=== PATIENT | female | born 2005 | race African-American/Black ===

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

== ENCOUNTER 2024-01-17 22:08 | Emergency (ER) | payer OTHER ==
--- NOTE | 2024-01-17 22:23 | ED ---
SOB HPI - General Source: patient, RN notes reviewed Mode of arrival: ambulatory Limitations: no limitations <Gabbie Madrigal - Last Filed: 01/17/24 22:22> <Raj Hwang - Last Filed: 01/18/24 02:17> - General Chief Complaint: Shortness of Breath Stated Complaint: SOB,37 WEEKS Time Seen by Provider: 01/17/24 22:22 - History of Present Illness Initial Comments: Patient is a 18-year-old female presented ER chief complaint shortness of breath. Denies any chest pain, cough, fevers, congestion. (Gabbie Madrigal) 18-year-old female who is currently 37 weeks presenting to the ED with a chief complaint of shortness of breath. Patient states she was in her bed when she started to feel an episode of shortness of breath and felt as if her heart was racing. Patient reports that this feels somewhat similar to history of panic attacks. No chest pain or shortness of breath. No fever or chills. No other complaints at this time. (Raj Hwang) - Related Data Previous Rx's Medication Instructions Recorded Escitalopram [Lexapro] 10 mg PO DAILY 30 Days #30 tab 04/08/23 Mirtazapine [Remeron] 15 mg PO HS 30 Days #30 tab 04/08/23 Nicotine 14Mg/24Hr Patch [Habitrol] 1 patch TRANSDERM DAILY 14 Days 04/08/23 #14 patch Cephalexin [Keflex] 500 mg PO Q6HR 7 Days #28 cap 01/18/24 Allergies Allergy/AdvReac Type Severity Reaction Status Date / Time No Known Allergies Allergy Verified 04/01/23 20:29 Review of Systems ROS Other: All systems not noted in ROS Statement are negative. <Gabbie Madrigal - Last Filed: 01/17/24 22:22> ROS Other: All systems not noted in ROS Statement are negative. <Raj Hwang - Last Filed: 01/18/24 02:17> ROS Statement: Those systems with pertinent positive or pertinent negative responses have been documented in the HPI. Past Medical History Past Medical History: No Reported History History of Any Multi-Drug Resistant Organisms: MRSA Date of last positivie culture/infection: 06/22/16 MDRO Source:: LEFT THIGH Past Surgical History: No Surgical Hx Reported Additional Past Surgical History / Comment(s): head surgery Past Anesthesia/Blood Transfusion Reactions: No Reported Reaction Past Psychological History: Anxiety, Depression Smoking Status: Vaper Past Alcohol Use History: Daily Past Drug Use History: Marijuana - Past Family History Mother Family Medical History: Hypertension <Gabbie Madrigal - Last Filed: 01/17/24 22:22> General Exam Limitations: no limitations <Gabbie Madrigal - Last Filed: 01/17/24 22:22> General appearance: alert, in no apparent distress Eye exam: Present: normal appearance Neck exam: Present: normal inspection Respiratory exam: Present: normal lung sounds bilaterally Cardiovascular Exam: Present: regular rate, normal rhythm GI/Abdominal exam: Present: soft (Gravid) Neurological exam: Present: alert, oriented X3 Skin exam: Present: warm, dry <Raj Hwang - Last Filed: 01/18/24 02:17> - General Exam Comments Initial Comments: Visual Physical Exam Vital signs reviewed General: Well-appearing, nontoxic, no acute distress. Head: Normocephalic, atraumatic Eyes: PERRLA, EOMI ENT: Airway patent Chest: Nonlabored breathing Skin: No visual rash, normal skin tone Neuro: Alert and oriented 3 Musculoskeletal: No gross abnormalities (Gabbie Madrigal) Course Vital Signs 01/17/24 22:11 Temperature 97.7 F Pulse Rate 80 Respiratory 18 Rate Blood Pressure 122/80 O2 Sat by Pulse 99 Oximetry Medical Decision Making - EKG Data -: EKG Interpreted by Me <Gabbie Madrigal - Last Filed: 01/17/24 22:22> - Lab Data Result diagrams: 01/17/24 22:54 01/17/24 23:33 <Raj Hwang - Last Filed: 01/18/24 02:17> - Medical Decision Making I performed the quick note portion of the exam. Electronically signed by Gabbie Madrigal PA-C (Gabbie Madrigal) Was pt. sent in by a medical professional or institution ([facility], [facility], urgent care, hospital, or care home...) When possible be specific @ -No Did you speak to anyone other than the patient for history (EMS, parent, family, police, friend...)? What history was obtained from this source @ -No Did you review nursing and triage notes (agree or disagree)? Why? @ -I reviewed and agree with nursing and triage notes Were old charts reviewed (outside hosp., previous admission, EMS record, old EKG, old radiological studies, urgent care reports/EKG's, care home records)? Report findings @ -No old charts were reviewed Differential Diagnosis (chest pain, altered mental status, abdominal pain women, abdominal pain men, vaginal bleeding, weakness, fever, dyspnea, syncope, headache, dizziness, GI bleed, back pain, seizure, CVA, palpatations, mental health, musculoskeletal)? @ -Differential Dyspnea: Coronary syndrome, arrhythmia, tamponade, asthma, COPD, pulmonary embolism, pneumonia, pneumothorax, pulmonary effusion, anaphylaxis, diabetic ketoacidosis, flailed chest, pulmonary contusion, diaphragmatic rupture, anemia, neuromuscular, this is not meant to be an all-inclusive list. EKG interpreted by me (3pts min.). @ -EKG interpreted by me showing a sinus rhythm at [address] or T wave changes. OR 114, QRS 90, QT/QTc 337/375 X-rays interpreted by me (1pt min.). @ -None done CT interpreted by me (1pt min.). @ -None done U/S interpreted by me (1pt. min.). @ -None done What testing was considered but not performed or refused? (CT, X-rays, U/S, labs)? Why? @ -None What meds were considered but not given or refused? Why? @ -None Did you discuss the management of the patient with other professionals (professionals i.e. , PA, G[facility] SPRAYER, lab, RT, psych nurse, social science manager, podiatry professor, teacher, chief digital officer, correctional casework specialist)? Give summary @ -No Was smoking cessation discussed for >3mins.? @ -No Was critical care preformed (if so, how long)? @ -No Were there social determinants of health that impacted care today? How? (Homele ssness, low income, unemployed, alcoholism, drug addiction, transportation, low edu. Level, literacy, decrease access to med. care, senior living, rehab)? @ -No Was there de-escalation of care discussed even if they declined (Discuss DNR or withdrawal of care, Hospice)? DNR status @ -No What co-morbidities impacted this encounter? (DM, HTN, Smoking, COPD, CAD, Cancer, CVA, ARF, Chemo, Hep., AIDS, mental health diagnosis, sleep apnea, morbid obesity)? @ - Was patient admitted / discharged? Hospital course, mention meds given and route, prescriptions, significant lab abnormalities, going to OR and other pertinent info. @ -Discharge 18-year-old female presenting to the ED with an episode of shortness of breath and palpitations. Laboratory studies reviewed. CBC unremarkable. Coagulation panel does show a D-dimer at 5.95. Chemistry panel largely unremarkable. UA largely unremarkable as well however does show white blood cells and 5 bacteria. Not highly suggestive of urinary tract infection patient is not having symptoms right now however in context of patient will be provided antibiotics. Serology panel negative. In regards to elevated D-dimer, patient does not want any additional workup including CT PE or venous duplex. Patient does report symptoms are similar to history of panic attacks. Patient discharged home in stable condition with strict return precautions. Undiagnosed new problem with uncertain prognosis? @ -No Drug Therapy requiring intensive monitoring for toxicity (Heparin, Nitro, Insulin, Cardizem)? @ -No Were any procedures done? @ -No Diagnosis/symptom? @ -Shortness of breath, palpitations, now resolved Acute, or Chronic, or Acute on Chronic? @ -Acute Uncomplicated (without systemic symptoms) or Complicated (systemic symptoms)? @ -Uncomplicated Side effects of treatment? @ -No Exacerbation, Progression, or Severe Exacerbation? @ -No Poses a threat to life or bodily function? How? (Chest pain, USA, SD, pneumonia, PE, COPD, DKA, ARF, appy, cholecystitis, CVA, Diverticulitis, Homicidal, Suicidal, threat to staff... and all critical care pts) @ -Unlikely (Raj Hwang) - Lab Data Lab Results 01/17/24 01/17/24 01/18/24 Range/Units 22:54 23:33 00:29 WBC 9.3 (4.0-11.0) k/uL RBC 3.77 L (3.80-5.40) m/uL Hgb 11.7 (11.4-16.0) gm/dL Hct 34.3 (34.0-46.0) % MCV 90.9 (80.0-100.0) fL MCH 31.0 (25.0-35.0) pg MCHC 34.2 (31.0-37.0) g/dL RDW 12.9 (11.5-15.5) % Plt Count 256 (150-450) k/uL MPV 7.5 PT (10.0-12.5) sec INR (<1.2) APTT (22.0-30.0) sec D-Dimer (<0.60) mg/L FEU Sodium 135 L (137-145) mmol/L Potassium 3.2 L (3.5-5.1) mmol/L Chloride 112 H (98-107) mmol/L Carbon Dioxide 19 L (22-30) mmol/L Anion Gap 4 mmol/L BUN 5 L (7-17) mg/dL Creatinine 0.33 L (0.52-1.04) mg/dL Est GFR (CKD-EPI)AfAm >90 (>60 ml/min/1.73 sqM) Est GFR (CKD-EPI)NonAf >90 (>60 ml/min/1.73 sqM) Glucose 96 (74-99) mg/dL Calcium 8.0 L (8.4-10.2) mg/dL Total Bilirubin 0.3 (0.2-1.3) mg/dL AST 26 (14-36) U/L ALT 15 (4-34) U/L Alkaline Phosphatase 165 H (38-126) U/L Troponin I (0.000-0.034) ng/mL Total Protein 5.0 L (6.3-8.2) g/dL Albumin 2.6 L (3.5-5.0) g/dL Urine Color Light Yellow Urine Appearance Clear (Clear) Urine pH 6.5 (5.0-8.0) Ur Specific Zachary 1.019 (1.001-1.035) Urine Protein Negative (Negative) Urine Glucose (UA) Negative (Negative) Urine Ketones Negative (Negative) Urine Blood Negative (Negative) Urine Nitrite Negative (Negative) Urine Bilirubin Negative (Negative) Urine Urobilinogen <2.0 (<2.0) mg/dL Ur Leukocyte Esterase Large H (Negative) Urine RBC 1 (0-5) /hpf Urine WBC 32 H (0-5) /hpf Ur Squamous Epith Cells 5 H (0-4) /hpf Urine Bacteria Rare H (None) /hpf Urine Mucus Occasional H (None) /hpf Influenza Type A (PCR) (Not Detectd) Influenza Type B (PCR) (Not Detectd) RSV (PCR) (Not Detectd) SARS-CoV-2 (PCR) (Not Detectd) 01/18/24 01/18/24 01/18/24 Range/Units 01:01 01:01 01:12 WBC (4.0-11.0) k/uL RBC (3.80-5.40) m/uL Hgb (11.4-16.0) gm/dL Hct (34.0-46.0) % MCV (80.0-100.0) fL MCH (25.0-35.0) pg MCHC (31.0-37.0) g/dL RDW (11.5-15.5) % Plt Count (150-450) k/uL MPV PT 9.6 L (10.0-12.5) sec INR 0.9 (<1.2) APTT 22.5 (22.0-30.0) sec D-Dimer 5.95 H (<0.60) mg/L FEU Sodium (137-145) mmol/L Potassium (3.5-5.1) mmol/L Chloride (98-107) mmol/L Carbon Dioxide (22-30) mmol/L Anion Gap mmol/L BUN (7-17) mg/dL Creatinine (0.52-1.04) mg/dL Est GFR (CKD-EPI)AfAm (>60 ml/min/1.73 sqM) Est GFR (CKD-EPI)NonAf (>60 ml/min/1.73 sqM) Glucose (74-99) mg/dL Calcium (8.4-10.2) mg/dL Total Bilirubin (0.2-1.3) mg/dL AST (14-36) U/L ALT (4-34) U/L Alkaline Phosphatase (38-126) U/L Troponin I <0.012 (0.000-0.034) ng/mL Total Protein (6.3-8.2) g/dL Albumin (3.5-5.0) g/dL Urine Color Urine Appearance (Clear) Urine pH (5.0-8.0) Ur Specific Zachary (1.001-1.035) Urine Protein (Negative) Urine Glucose (UA) (Negative) Urine Ketones (Negative) Urine Blood (Negative) Urine Nitrite (Negative) Urine Bilirubin (Negative) Urine Urobilinogen (<2.0) mg/dL Ur Leukocyte Esterase (Negative) Urine RBC (0-5) /hpf Urine WBC (0-5) /hpf Ur Squamous Epith Cells (0-4) /hpf Urine Bacteria (None) /hpf Urine Mucus (None) /hpf Influenza Type A (PCR) Not Detected (Not Detectd) Influenza Type B (PCR) Not Detected (Not Detectd) RSV (PCR) Not Detected (Not Detectd) SARS-CoV-2 (PCR) Not Detected (Not Detectd) - EKG Data EKG Comments: EKG taken at 22:19 shows sinus rhythm with sinus arrhythmia. No acute ST segment or T-wave abnormalities. Return here 81, OR interval 114, QRS duration 90, QT/QTC 337/375. (Gabbie Madrigal) Disposition <Gabbie Madrigal - Last Filed: 01/17/24 22:22> Is patient prescribed a controlled substance at d/c from ED?: No Time of Disposition: 01:50 <Raj Hwang - Last Filed: 01/18/24 02:17> Clinical Impression: Shortness of breath Disposition: HOME SELF-CARE Condition: Good Additional Instructions: Please return to the Emergency Department if symptoms worsen or any other concer ns. Please follow-up with your PCP. Prescriptions: Cephalexin [Keflex] 500 mg PO Q6HR 7 Days #28 cap Referrals: Dave Cervantes [Primary Care Provider] - 1-2 days
[2024-01-17] MEDS: SODIUM CHLORIDE 0.9% 1,000 ML IV STA (22:54)
[2024-01-17 23:09] LABS: HCT 34.3 % (34.0-46.0); HGB 11.7 gm/dL (11.4-16.0); MCHC 34.2 g/dL (31.0-37.0); MCV 90.9 fL (80.0-100.0); Mean Platelet Volume 7.5; Platelet Count 256 k/uL (150-450); RBC 3.77 m/uL (3.80-5.40); RDW 12.9 % (11.5-15.5); WBC 9.3 k/uL (4.0-11.0)
[2024-01-18 00:09] LABS: ALT 15 U/L (4-34); AST 26 U/L (14-36); African American GFR (CKD) >90 (>60 ml/min/1.73 sqM); Albumin 2.6 g/dL (3.5-5.0); Alkaline Phosphatase 165 U/L (38-126); Anion Gap 4 mmol/L; Blood Urea Nitrogen 5 mg/dL (7-17); Carbon Dioxide 19 mmol/L (22-30); Chloride 112 mmol/L (98-107); Glucose 96 mg/dL (74-99); Non-African American GFR(CKD) >90 (>60 ml/min/1.73 sqM); Potassium 3.2 mmol/L (3.5-5.1); Sodium 135 mmol/L (137-145); Total Bilirubin 0.3 mg/dL (0.2-1.3)
[2024-01-18 00:53] LABS: Appearance,Urine Clear (Clear); Bacteria,Urine Rare /hpf; Bilirubin,Urine Negative (Negative); Blood,Urine Negative (Negative); Color,Urine Light Yellow; Glucose,Urine (UA) Negative (Negative); Ketones,Urine Negative (Negative); Leukocyte Esterase,Urine Large (Negative); Mucus,Urine Occasional /hpf; Nitrite,Urine Negative (Negative); PH, Urine 6.5 (5.0-8.0); Protein,Urine Negative (Negative); RBC,Urine 1 /hpf (0-5); Specific Gravity,Urine 1.019 (1.001-1.035); Squamous Epithelial Cell,Urine 5 /hpf (0-4); Urobilinogen,Urine <2.0 mg/dL (<2.0); WBC,Urine 32 /hpf (0-5)
[2024-01-18 01:33] LABS: INR 0.9 (<1.2); Partial Thromboplastin Time 22.5 sec (22.0-30.0); Prothrombin Time 9.6 sec (10.0-12.5)
[2024-01-18 03:16] VITALS: BP 107/68; PULSE 82; RESP 16; TEMP 97.2
== END 2024-01-18 02:30 | disposition home or self-care (01) ==
LOC: EC 22:08
DX: O99.413 Diseases of the circulatory system complicating pregnancy, third trimester (principal); I49.8 Other specified cardiac arrhythmias; O99.333 Smoking (tobacco) complicating pregnancy, third trimester; F17.290 Nicotine dependence, other tobacco product, uncomplicated; O99.323 Drug use complicating pregnancy, third trimester; F12.90 Cannabis use, unspecified, uncomplicated; Z20.822 Contact with and (suspected) exposure to COVID-19; Z3A.37 37 weeks gestation of pregnancy
CPT/HCPCS: 36415; 80053; 81001; 84484; 85027; 85379; 85610; 85730; 87636; 93005; 96360; 99285

== ENCOUNTER 2024-01-18 02:33 | Outpatient (CLI) | payer OTHER ==
[2024-01-18 04:25] VITALS: BP 112/66; PULSE 71; RESP 16; TEMP 96.6
--- NOTE | 2024-01-18 11:32 | P.MSEPDOC ---
Presenting Problems - Arrival Data Date of Arrival on Unit: 01/18/24 Time of Arrival on Unit: 02:33 Mode of Transport: Wheelchair - Complaint OB-Reason for Admission/Chief Complaint: NST, Observation/Evaluation, Other Comment: pt. presents to triage from ER pt. was down in ER due to SOB that started around 9or 10pm, pt. states she was folding swaddles and then layed down and was having SOB with a heavy pressure on her chest, pt. 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 pt. was discharged from ER- pt. refusing CT scan as encouraged by ER. pt. denies SOB or chest pain at this time, pt. states that all resolved when she was down in ER. Medical History - Information : 1 Para: 0 Term: 0 : 0 Abortions: Spontaneous or Elective: 0 Number of Living Children: 0 - Gestational Age Gestational Age by AZRA (wks/days): 37 Weeks and 3 Days Review of Systems - Review of Systems Constitutional: No problems Breast: No problems ENT: No problems Cardiovascular: No problems Respiratory: No problems Gastrointestinal: No problems Genitourinary: No problems Musculoskeletal: No problems Neurological: No problems Skin: No problems Comment: lungs clear, no SOB, no chest pain Vital Signs - Temperature Temperature: 96.6 F Temperature Source: Temporal Artery Scan - Pulse Pulse Oximetery Pulse Rate: 71 Pulse Assessment Method: Automatic Cuff - Respirations Respiratory Rate: 16 Oxygen Delivery Method: Room Air O2 Sat by Pulse Oximetry: 100 - Blood Pressure Right Arm Blood Pressure: 112/66 Blood Pressure Mean: 81 Blood Pressure Source: Automatic Cuff Medical Screen Scoring - Assessment - Baby A Baseline FHR: 115 Heart Rate - NICHD Category: Category I (Normal) NST: Reactive Physician Notification - Physician Notified Physician Notified Date: 01/18/24 Physician Notified Time: 03:17 Physician: Tenisha Strickland Order Received: Yes - Notification Comment Comment: discharge pt. home, and have pt. follow up with Dr. Poole Maternal Triage Index - Maternal Triage Index Presenting for scheduled procedure w/no complaint: No - Stat/Priority 1 Stat Priority 1: No - Urgent/Priority 2 Urgent Priority 2: No - Prompt/Priority 3 Prompt Priority 3: No - Non-Urgent/Priority 4 Non-Urgent Priority 4: Yes Criteria Met for Priority 4: pt. is 37.3, reactive NST, denies pain or discomfort Disposition - Disposition OB Disposition: Discharge to home Discharge Date: 01/18/24 Discharge Time: 03:32 I agree with the RN Medical Screening Exam: Yes Physician's MSE Comment: Patient refused computed tomography scan in the ER to rule out pulmonary embolism. Apparently her symptoms have completely resolved. NST is reactive and she has no complaints. She is advised to follow up with her physician, Dr. Poole. She is advised to return to the ER preferably at the [facility] where her physician works out of if any symptoms return or any new symptoms arise. Case reviewed; plan agreed upon as documented in EMR&OBIX.: Yes Diagnosis: SHORTNESS OF BREATH
== END 2024-01-18 03:32 | disposition home or self-care (01) ==
LOC: FBPOP 02:33
PROVIDERS: ATTEND Obstetrics & Gynecology
DX: O99.513 Diseases of the respiratory system complicating pregnancy, third trimester (principal); R06.02 Shortness of breath; O99.323 Drug use complicating pregnancy, third trimester; F12.90 Cannabis use, unspecified, uncomplicated; Z3A.37 37 weeks gestation of pregnancy
CPT/HCPCS: 59025; G0463; 99213

== ENCOUNTER 2024-02-02 19:56 | Outpatient (CLI) | payer OTHER ==
[2024-02-02 21:35] VITALS: BP 115/70; PULSE 80; RESP 16; TEMP 96.8
--- NOTE | 2024-02-04 08:47 | P.MSEPDOC ---
Presenting Problems - Arrival Data Date of Arrival on Unit: 02/02/24 Time of Arrival on Unit: 19:56 Mode of Transport: Ambulatory - Complaint OB-Reason for Admission/Chief Complaint: Rule Out SROM Comment: pt. present to triage due to possible SROM, pt. states she started leaking clear fluid around noon today, shes not sure if it was just her mucous plug or if it was her water that has broke, pt. states shes been leaking througout the day since, amnisure negative Medical History - Information : 1 Para: 0 Term: 0 : 0 Abortions: Spontaneous or Elective: 0 Number of Living Children: 0 - Gestational Age Gestational Age by AZRA (wks/days): 39 Weeks and 4 Days Review of Systems - Review of Systems Constitutional: No problems Breast: No problems ENT: No problems Cardiovascular: No problems Respiratory: No problems Gastrointestinal: No problems Genitourinary: No problems Musculoskeletal: No problems Neurological: No problems Skin: No problems Vital Signs - Temperature Temperature: 96.8 F Temperature Source: Temporal Artery Scan - Pulse Pulse Oximetery Pulse Rate: 80 Pulse Assessment Method: Automatic Cuff - Respirations Respiratory Rate: 16 Oxygen Delivery Method: Room Air O2 Sat by Pulse Oximetry: 98 - Blood Pressure Left Arm Blood Pressure: 115/70 Blood Pressure Mean: 85 Blood Pressure Source: Automatic Cuff Medical Screen Scoring - Assessment - Baby A Baseline FHR: 130 Heart Rate - NICHD Category: Category I (Normal) NST: Reactive Physician Notification - Physician Notified Physician Notified Date: 02/02/24 Physician Notified Time: 20:44 Physician: Yajaira Saleem New Order Received: Yes - Notification Comment Comment: discharge home Maternal Triage Index - Maternal Triage Index Presenting for scheduled procedure w/no complaint: No - Stat/Priority 1 Stat Priority 1: No - Urgent/Priority 2 Urgent Priority 2: No - Prompt/Priority 3 Prompt Priority 3: Yes Criteria Met for Priority 3: amnisure negavtive, irregular contractions traced- pt. not feeling any of them Disposition - Disposition OB Disposition: Discharge to home Discharge Date: 02/02/24 Discharge Time: 20:51 I agree with the RN Medical Screening Exam: Yes Case reviewed; plan agreed upon as documented in EMR&OBIX.: Yes Diagnosis: PRIMARY INADEQUATE CONTRACTIONS
== END 2024-02-02 20:51 | disposition home or self-care (01) ==
LOC: FBPOP 19:56
PROVIDERS: ATTEND Obstetrics & Gynecology
DX: O62.0 Primary inadequate contractions (principal); O47.1 False labor at or after 37 completed weeks of gestation; Z3A.39 39 weeks gestation of pregnancy
CPT/HCPCS: 59025; 84112; G0463; 99213